=== PATIENT | male | born 1960 | race Caucasian/White ===

== ENCOUNTER → 2018-07-20 | Outpatient (CLI) | payer OTHER | LOC: BMCIMAGING 10:54 | DX: J45.909 Unspecified asthma, uncomplicated (principal) ==

== ENCOUNTER 2018-11-05 23:05 | Emergency (ER) | payer OTHER ==
[2018-11-05] MEDS ORDERED: methylPREDNISolone SOD SUCC 125 MG/2 ML VIAL IVP ONE (23:15)
[2018-11-05] MEDS ORDERED: NS 1,000 ML IV ONE (23:15)
[2018-11-05] MEDS ORDERED: RANITIDINE 50 MG/2 ML VIAL IVP ONE (23:15)
--- NOTE | 2018-11-05 23:15 | EDPHY ---
H & P Stated Complaint: ALLERGIC REACTION TO A SAUCE 7 P.M. Source: Patient, Family () Exam Limitations: No limitations - Personal History Current Tetanus/Diphtheria Vaccine: Unsure Current Tetanus Diphtheria and Acellular Pertussis (TDAP): Unsure - Medical/Surgical History Hx Asthma: No Hx Chronic Respiratory Disease: No Hx Diabetes: No Hx Cardiac Disease: No Hx Renal Disease: No Hx Cirrhosis: No Hx Alcoholism: No Hx HIV/AIDS: No Hx Splenectomy or Spleen Trauma: No Other PMH: DENIES - Social History Smoking Status: Never smoked Time Seen by Provider: 11/05/18 23:12 HPI/ROS: HPI: This is a 58-year-old male who presents with Chief Complaint: ALLERGIC REACTION TO A SAUCE 7 P.M. Location: Lower lip Quality: Swelling Duration: 1 hr prior to arrival Signs and Symptoms: no shortness of breath at rest, no shortness of breath on exertion, no cough, no chest pain, no palpitations, no lower extremity edema, no wheezing, no orthopnea, no paroxysmal nocturnal dyspnea, no fever, no injury/ trauma, no hemoptysis, no carpal pedal spasms Timing: Acute, rapid onset Severity: Moderate Context: Patient presents with 1 hr history of lower lip swelling occurred after eating a type of sauce around 7:00 p.m. No history of food allergies. Does note an allergy to beclomethasone. Does not have a history of hypertension does not take blood pressure medications. Chronic rash noted to groin area that he is taking singular daily 4. This rash has been evaluated by his primary care provider. Modifying Factors: No medications taken Comment: ROS: A comprehensive 10 system review of systems is otherwise negative aside from elements mentioned in the history of present illness. MEDICAL/SURGICAL/SOCIAL HISTORY: Medical history: Generally healthy. Takes Singulair daily. Surgical history: Denies Social history: , nonsmoker. Drinks alcohol socially. CONSTITUTIONAL: Well-developed, well-nourished, middle-aged white male, awake and alert, no obvious distress, no dyspnea with talking HEENT: Atraumatic and normocephalic, PERRL, EOMI. Nares patent; no rhinorrhea; no nasal mucosal edema. Tympanic membranes clear. Oropharynx clear, no postpharyngeal edema, lower lip is twice the size is the upper lip, no tongue swelling, no facial swelling, no exudate and moist pink mucosa. Airway patent. No lymphadenopathy. No meningismus. Cardiovascular: Normal S1/S2, regular rate, regular rhythm, without murmur rub or gallop. PULMONARY/CHEST: Symmetrical and nontender. Clear to auscultation bilaterally. Good air movement. No accessory muscle usage. No upper airway transmission of sounds. ABDOMEN: Soft, nondistended, nontender, no rebound, no guarding, no peritoneal signs, no masses or organomegaly. No CVAT. EXTREMITIES: 2/2 pulses, strength 5/5, no deformities, no clubbing, no cyanosis or edema. NEUROLOGICAL: no focal neuro deficits. GCS 15. Speaking in complete sentences without difficulty. SKIN: Warm and dry, no erythema. no rash. Good capillary refill. (Kimberly Acevedo) Constitutional: Initial Vital Signs Temperature (C) 36.8 C 11/05/18 23:07 Heart Rate 77 11/05/18 23:07 Respiratory Rate 18 11/05/18 23:07 Blood Pressure 133/99 H 11/05/18 23:07 O2 Sat (%) 96 11/05/18 23:07 O2 Delivery Mode Room Air Allergies/Adverse Reactions: beclomethasone [From Qvar] Allergy (Verified 11/05/18 23:09) Home Medications: Medication Instructions Recorded Montelukast Sodium [Singulair 10 10 mg PO DAILY@1800 11/05/18 mg (*)] Medical Decision Making ED Course/Re-evaluation: Vital signs reviewed and stable upon arrival. Placed on rn cardiac. No signs of airway compromise, respiratory distress, anaphylaxis. IV access obtained and given 1 L normal saline, IV Solu-Medrol 125 mg, IV Benadryl 50 mg, IV Zantac 50 mg 0050: reassessed patient 2 hours later and no change in lower lip swelling. Given IV Benadryl 50 mg and IV Pepcid 20 mg 0150: End of Shift. Signed over to Dr. Ordonez pending re-evaluation in 1 hr at 3: 00 a.m. His symptoms have not progressed, patient will likely be able to be discharged home with prednisone 40 mg daily x5 days and plus or minus Pepcid twice daily. If progression of symptoms, will require admission to the hospital for observation. This patient was seen under the supervision of my secondary supervising physician. I evaluated and cared for this patient independently. (Kimberly Acevedo) Differential Diagnosis: Differential diagnosis includes but is not limited to allergic reaction, anaphylaxis, angioedema, mast cell reaction, C1 esterase deficiency. (Kimberly Acevedo) Other Provider: 0200 patient signed out to me from ROMI Acevedo pending observation of his new angioedema. 0230 patient feeling no change. May be some small amount of improvement. Certainly no worsening. He is requesting go home. Uncertain what he is reacting to but certainly is not been any progression. Will discharge with follow-up with his lactation nurse per the PAs plan. (Sha Ordonez) - Data Points Medications Given: Discontinued Medications Diphenhydramine HCl (Benadryl Injection) 50 mg IVP EDNOW ONE Stop: 11/05/18 23:16 Last Admin: 11/05/18 23:33 Dose: 50 mg Diphenhydramine HCl (Benadryl Injection) 50 mg IVP EDNOW ONE Stop: 11/06/18 00:52 Last Admin: 11/06/18 00:59 Dose: 50 mg Famotidine (Pepcid) 20 mg IVP EDNOW ONE Stop: 11/06/18 00:53 Last Admin: 11/06/18 01:00 Dose: 20 mg Sodium Chloride (Ns) 1,000 mls @ 0 mls/hr IV ONCE ONE; Wide Open PRN Reason: Protocol Stop: 11/05/18 23:16 Last Admin: 11/05/18 23:33 Dose: 1,000 mls Methylprednisolone Sodium Succinate (Solu-Medrol) 125 mg IVP EDNOW ONE Stop: 11/05/18 23:16 Last Admin: 11/05/18 23:31 Dose: 125 mg Ranitidine HCl (Zantac) 50 mg IVP EDNOW ONE Stop: 11/05/18 23:16 Last Admin: 11/05/18 23:33 Dose: 50 mg Departure - Departure Disposition: Home, Routine, Self-Care Clinical Impression: Lip swelling Condition: Good Instructions: Angioedema (ED) Additional Instructions: May continue taking Benadryl, 50 mg every 4 hr for swelling or hives. Follow up with your lactation nurse in 2-3 days for further evaluation. Return to the emergency department for increasing swelling, difficulty breathing , worsening rash, or any other concerns. Referrals: Jean Paul Ojeda MD [Primary Care Provider] - As per Instructions
[2018-11-06] MEDS ORDERED: FAMOTIDINE 20 MG/2 ML SDV IVP ONE (00:52)
[2018-11-06 03:08] VITALS: BP 106/71
== END 2018-11-06 03:07 | disposition home or self-care (01) ==
DX: R22.0 Localized swelling, mass and lump, head (principal); E86.9 Volume depletion, unspecified
CPT/HCPCS: 96374; J1200; J2780; J2930